=== PATIENT | male | born 1990 | race African-American/Black ===

== ENCOUNTER 2016-11-09 09:07 | Emergency (ER) | payer OTHER ==
[2016-11-09 11:10] VITALS: BP 129/73
--- NOTE | 2016-11-09 11:11 | ER Document Report ---
ED Extremity Problem, Upper - General Chief Complaint: Shoulder Pain Stated Complaint: SHOULDER PAIN Mode of Arrival: Ambulatory Information source: Patient Notes: 26-year-old M presents to the emergency department complaining of left shoulder pain over the last 2 days. Pt reports pain to anterior lateral left shoulder worse with movement of joint. 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 Denies fever, swelling, warmth, bruising, extremity weakness/numbness/tingling, chest pain or shortness of breath. TRAVEL OUTSIDE OF THE [place] IN LAST 30 DAYS: No - HPI Patient complains to provider of: Left, Shoulder Onset: Yesterday Recent injury: No Quality of pain: Achy, Sharp Severity of pain: Intermittent Pain Level: 3 Associated symptoms: None Exacerbated by: Movement Relieved by: Rest, Positioning Similar symptoms previously: No Recently seen / treated by doctor: No - Related Data Allergies/Adverse Reactions: Penicillins Allergy (Verified 11/09/16 09:17) Past Medical History - Social History Smoking Status: Never Smoker Frequency of alcohol use: None Drug Abuse: None Lives with: Family Family History: Reviewed & Not Pertinent Patient has suicidal ideation: No Patient has homicidal ideation: No Infectious Medical History: Reports: Hx HIV Surgical Hx: Negative - Immunizations Hx Diphtheria, Pertussis, Tetanus Vaccination: Yes Review of Systems - Review of Systems Constitutional: No symptoms reported EENT: No symptoms reported Cardiovascular: No symptoms reported Respiratory: No symptoms reported Gastrointestinal: No symptoms reported Genitourinary: No symptoms reported Male Genitourinary: No symptoms reported Musculoskeletal: See HPI Skin: No symptoms reported Hematologic/Lymphatic: No symptoms reported Neurological/Psychological: No symptoms reported -: Yes All other systems reviewed and negative Physical Exam - Vital signs Vitals: Temp Pulse Resp BP Pulse Ox 97.8 F 81 14 135/73 H 100 11/09/16 09:14 11/09/16 09:14 11/09/16 09:14 11/09/16 09:14 11/09/16 09:14 Interpretation: Normal - General General appearance: Appears well, Alert In distress: None - HEENT Head: Normocephalic, Atraumatic Eyes: Normal Pupils: PERRL - Respiratory Respiratory status: No respiratory distress Chest status: Nontender Breath sounds: Normal Chest palpation: Normal - Cardiovascular Rhythm: Regular Heart sounds: Normal auscultation Murmur: No - Abdominal Inspection: Normal Distension: No distension Bowel sounds: Normal Tenderness: Nontender Organomegaly: No organomegaly - Back Back: Normal, Nontender - Extremities General upper extremity: Normal inspection, Nontender, Normal color, Normal ROM , Normal strength, Normal temperature. No: Tender, Edema General lower extremity: Normal inspection, Nontender, Normal color, Normal ROM , Normal strength, Normal temperature, Normal weight bearing. No: Tender, Edema , Penny's sign Shoulder: Tender - Mild tenderness to palpation to anterior and lateral left shoulder/AC joint area. Full active, passive, and against resistance range of motion. Neurovascular function intact. No swelling, erythema, bruising, warmth , or instability.. No: Normal, Nontender, Abrasion, Deformity, Dislocation, Ecchymosis, Instability, Laceration, Limited ROM, Other Arm: Normal, Nontender Elbow: Normal, Nontender Forearm: Normal, Nontender Wrist: Normal, Nontender Hand: Normal, Nontender - Neurological Neuro grossly intact: Yes Cognition: Normal Orientation: AAOx4 Dameron Coma Scale Eye Opening: Spontaneous Mary Coma Scale Verbal: Oriented Dameron Coma Scale Motor: Obeys Commands Dameron Coma Scale Total: 15 Speech: Normal Motor strength normal: LUE, RUE, LLE, RLE Sensory: Normal - Psychological Associated symptoms: Normal affect, Normal mood - Skin Skin Temperature: Warm Skin Moisture: Dry Skin Color: Normal Course - Re-evaluation Re-evalutation: 11/09/16 11:05 Patient hemodynamically stable, in no distress, afebrile. Patient declined x- rays. No suggestion of emergent osseous, inflammatory, vascular, or infectious etiology to symptoms at this time. Patient appears stable for discharge and agrees with home care, follow-up , and ED return precautions. - Vital Signs Vital signs: Temp Pulse Resp BP Pulse Ox 97.8 F 63 16 129/73 H 100 11/09/16 11:05 11/09/16 11:05 11/09/16 11:05 11/09/16 11:05 11/09/16 11:05 Discharge - Discharge Clinical Impression: Left shoulder pain Qualifiers: Chronicity: acute Qualified Code(s): M25.512 - Pain in left shoulder Condition: Stable Disposition: HOME, SELF-CARE Instructions: Shoulder Injury ([facility]), Exercise Program for the Shoulder ([facility]), Anti-Inflammatory Medication ([facility]), Ice Packs ([facility]), Warm Packs ([facility]), Muscle Relaxers ([facility]), Family Physicians / Practices Additional Instructions: Follow-up with your primary care provider this week. Return to the emergency department for any worsening symptoms or concerns. Prescriptions: Methocarbamol [Robaxin 500 mg Tablet] 500 mg PO Q8HP PRN #10 tablet PRN Reason: Naproxen [Naprosyn 375 Mg Tablet] 375 mg PO BIDP PRN #10 tablet PRN Reason: Forms: Elevated Blood Pressure, Return to Work Referrals: [facility] [Provider Group] - Follow up in 3-5 days
== END 2016-11-09 11:17 | disposition home or self-care (01) ==
LOC: ER 09:07
DX: M25.512 Pain in left shoulder (principal); Z88.0 Allergy status to penicillin; Z21 Asymptomatic human immunodeficiency virus [HIV] infection status
CPT/HCPCS: 99283

== ENCOUNTER 2017-01-26 17:25 | Emergency (ER) | payer OTHER ==
[2017-01-26 17:48] VITALS: BP 124/65
--- NOTE | 2017-01-26 18:56 | ER Document Report ---
ED Medical Screen (RME) - General Stated Complaint: BACK PAIN Notes: 26 yo male c/o low back pain x 2 days. lifting heavy box prior to pain. no radiculopathy, no paresthesia. no bowel/bladder change. no fever. TRAVEL OUTSIDE OF THE [place] IN LAST 30 DAYS: No - Related Data Allergies/Adverse Reactions: Penicillins Allergy (Verified 01/26/17 18:53) Past Medical History Infectious Medical History: Reports: Hx HIV - Immunizations Hx Diphtheria, Pertussis, Tetanus Vaccination: Yes Physical Exam - Vital signs Vitals: Temp Pulse Resp BP Pulse Ox 98.9 F 76 16 124/65 99 01/26/17 17:44 01/26/17 17:44 01/26/17 17:44 01/26/17 17:44 01/26/17 17:44 Course - Vital Signs Vital signs: Temp Pulse Resp BP Pulse Ox 98.9 F 76 16 124/65 99 01/26/17 17:44 01/26/17 17:44 01/26/17 17:44 01/26/17 17:44 01/26/17 17:44
--- NOTE | 2017-01-26 21:01 | ER Document Report ---
ED Neck/Back Problem - General Chief Complaint: Low Back Pain Stated Complaint: BACK PAIN Time seen by provider: 20:55 Mode of Arrival: Ambulatory Information source: Patient Notes: 26-year-old male presents to ED for complain of low back pain times today. He states he was bit in the sissy-box prior to the pain. He denies any radiculopathy any paresthesias any loss of control of bowel or bladder or any change in bowel habit. He did has not had a fever. He has had chronic back pain for number of years it only happens when he lifts or turns wrong. TRAVEL OUTSIDE OF THE [place] IN LAST 30 DAYS: No - HPI Patient complains to provider of: Lower back Onset: Other - 2 days Where: Work Onset: Chronic Timing: Waxing and waning Quality of pain: Sharp Severity: Mild Pain Level: 2 Context: Lifting Recent injury: Yes Associated symptoms: Like prior neck/back pain, Lower back pain. denies: Incontinence, Motor loss, Numbness/tingling, Radiation to arm, Radiation to chest, Radiation to leg, Unable to urinate Exacerbated by: Movement of trunk Relieved by: Nothing Similar symptoms previously: Yes Recently seen / treated by doctor: No - Related Data Allergies/Adverse Reactions: Penicillins Allergy (Verified 01/26/17 18:53) Past Medical History - General Information source: Patient - Social History Smoking Status: Current Every Day Smoker Cigarette use (# per day): Yes - one third pack per day Chew tobacco use (# tins/day): No Smoking Education Provided: Yes - less than 2 minutes Frequency of alcohol use: Social Drug Abuse: None Occupation: heating and air Lives with: Spouse/Significant other Family History: CVA, DM, Hyperlipidemia, Hypertension, Malignancy Patient has suicidal ideation: No Patient has homicidal ideation: No - Past Medical History Cardiac Medical History: Reports: None Pulmonary Medical History: Reports: None EENT Medical History: Reports: None Neurological Medical History: Reports: None Endocrine Medical History: Reports: None Renal/ Medical History: Reports: None Malignancy Medical History: Reports None GI Medical History: Reports: None Musculoskeltal Medical History: Reports Hx Musculoskeletal Deformity Skin Medical History: Reports None Psychiatric Medical History: Reports: None Traumatic Medical History: Reports: None Infectious Medical History: Reports: Hx HIV Surgical Hx: Negative Past Surgical History: Reports: None - Immunizations Hx Diphtheria, Pertussis, Tetanus Vaccination: Yes Review of Systems - Review of Systems Constitutional: No symptoms reported EENT: No symptoms reported Cardiovascular: No symptoms reported Respiratory: No symptoms reported Gastrointestinal: No symptoms reported Genitourinary: No symptoms reported Male Genitourinary: No symptoms reported Musculoskeletal: Back pain, Muscle pain Skin: No symptoms reported Hematologic/Lymphatic: No symptoms reported Neurological/Psychological: No symptoms reported Physical Exam - Vital signs Vitals: Temp Pulse Resp BP Pulse Ox 98.9 F 76 16 124/65 99 01/26/17 17:44 01/26/17 17:44 01/26/17 17:44 01/26/17 17:44 01/26/17 17:44 Interpretation: Normal - General General appearance: Appears well, Alert - HEENT Head: Normocephalic, Atraumatic Eyes: Normal Pupils: PERRL - Respiratory Respiratory status: No respiratory distress Chest status: Nontender Breath sounds: Normal Chest palpation: Normal - Cardiovascular Rhythm: Regular Heart sounds: Normal auscultation Murmur: No - Abdominal Inspection: Normal Distension: No distension Bowel sounds: Normal Tenderness: Nontender Organomegaly: No organomegaly - Back Back: Normal, Tender - Low back. No: Deformity/step-off, CVA tenderness, Vertebra tenderness, Scars, Scoliosis, Wounds - Extremities General upper extremity: Normal inspection, Nontender, Normal color, Normal ROM , Normal temperature General lower extremity: Normal inspection, Nontender, Normal color, Normal ROM , Normal temperature, Normal weight bearing. No: Penny's sign - Neurological Neuro grossly intact: Yes Cognition: Normal Orientation: AAOx4 Deaver Coma Scale Eye Opening: Spontaneous Deaver Coma Scale Verbal: Oriented Deaver Coma Scale Motor: Obeys Commands Deaver Coma Scale Total: 15 Speech: Normal Motor strength normal: LUE, RUE, LLE, RLE Sensory: Normal - Psychological Associated symptoms: Normal affect, Normal mood - Skin Skin Temperature: Warm Skin Moisture: Dry Skin Color: Normal Course - Vital Signs Vital signs: Temp Pulse Resp BP Pulse Ox 98.9 F 76 16 124/65 99 01/26/17 17:44 01/26/17 17:44 01/26/17 17:44 01/26/17 17:44 01/26/17 17:44 Discharge - Discharge Clinical Impression: Low back pain Qualifiers: Chronicity: unspecified Back pain laterality: bilateral Sciatica presence: without sciatica Qualified Code(s): M54.5 - Low back pain Condition: Stable Disposition: HOME, SELF-CARE Instructions: Family Physicians / Practices Additional Instructions: LOW BACK PAIN: Three out of every four people will have an episode of disabling back pain during their lifetime. Most commonly the pain is due to straining of the muscles and ligaments in the low back. Usual treatment includes: (1) Rest on a firm surface. Avoid lying on your stomach. (2) Ice pack the painful area. After a few days, gentle heat may be used intermittently to relax the area, or ice packs can be continued. (3) Medication may be needed -- muscle relaxers and antiinflammatory medicines are commonly used. (4) As the back improves, exercises are prescribed to strengthen the back and abdominal muscles. Your doctor will advise you on the proper care for your back at each stage in your recovery. You may be better in a few days -- or healing may take several weeks. If new symptoms of a "herniated disc" (radiation of pain, numbness, or tingling down the back of the leg or weakness in the leg) occur, you should be re-examined. Further testing may be necessary. Anti-Inflammatory Medication You have received a prescription for an antiinflammatory agent. This is an excellent, safe drug for pain control. In addition, it has potent antiinflammatory effects which are beneficial, especially in the treatment of injuries, arthritis, or tendonitis. It's best to take this medicine with food. Persons with ulcer disease or allergy to aspirin should notify their physician of this before taking this drug. Take the medication exactly as prescribed. Don't take additional doses unless instructed to do so by your doctor. If you develop wheezing, shortness of breath, hives, faintness, stomach pain, vomiting, or dark black stools, return for re-evaluation at once. MUSCLE RELAXERS: Muscle relaxing medications are usually prescribed for acute muscle spasm or injury to the neck and back. They are often combined with antiinflammatory pain medication for increased relief. You may stop the muscle relaxer when the pain and stiffness have improved. Start the medication again if spasms recur. Muscle relaxers may cause drowsiness, especially with the first dose. Do not operate machinery or drive while under the effects of the medication. Most muscle relaxers last up to 24 hours. Do not combine the medication with alcohol. ICE PACKS: Apply ice packs frequently against the painful area. Many different schedules are recommended, such as "20 minutes on, 20 minutes off" or "one hour ice, two hours rest." If you need to work, you may need to go longer between ice treatments. You should plan to have the area ice packed AT LEAST one fourth of the time. The ice should be applied over the wrap, tape, or splint, or over a layer of cloth -- not directly against the skin. Some ice bags have a built-in cloth and can be put directly on the skin. WARM PACKS: After approximately two days, apply gentle heat (such as a heating pad or hot water bottle) for about 20 to 30 minutes about every two hours -- at least four times daily. Warmth and elevation will help you make a more rapid recovery , and will ease the pain considerably. Do not use HOT heat, and never apply heat for longer than 30 minutes. The continuous heat can invisibly damage skin and muscles -- even when no burn is seen on the surface. Damaged muscles can make you MORE sore. FOLLOW-UP CARE: If you have been referred to a physician for follow-up care, call the physician s office for an appointment as you were instructed or within the next two days. If you experience worsening or a significant change in your symptoms, notify the physician immediately or return to the Emergency Department at any time for re-evaluation. Prescriptions: Cyclobenzaprine HCl [Flexeril 10 mg Tablet] 10 mg PO TIDP PRN #15 tab PRN Reason: Naproxen 500 mg PO BIDP PRN #14 tablet PRN Reason: Forms: Smoking Cessation Education, Return to Work
== END 2017-01-26 21:25 | disposition home or self-care (01) ==
LOC: ER 17:25
DX: M54.5 Low back pain (principal); M54.9 Dorsalgia, unspecified; G89.29 Other chronic pain; F17.210 Nicotine dependence, cigarettes, uncomplicated
CPT/HCPCS: 99283

== ENCOUNTER 2017-06-21 20:32 | Emergency (ER) | payer OTHER ==
[2017-06-21] MEDS ORDERED: ACETAMINOPHEN 325 MG TABLET PO ONE (20:59)
--- NOTE | 2017-06-22 00:01 | ER Document Report ---
HPI - HPI Patient complains to provider of: lower back pain Pain Level: 3 Context: Patient is a 27-year-old male comes emergency department for chief complaint of lower back pain on both sides. This started about 2 days ago. 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 He states that he really came because he needs a couple of days off from work. He denies any impact injury to his back, surgeries on his back. He does have HIV but he denies any fever, he is compliant with his antivirals, he denies any bowel or bladder dysfunction, he denies any focal numbness or weakness. - CARDIOVASCULAR Cardiovascular: DENIES: Chest pain - REPRODUCTIVE Reproductive: DENIES: : - DERM Skin Color: Normal, [place] Past Medical History - General Information source: Patient - Social History Smoking Status: Never Smoker Drug Abuse: None Lives with: Spouse/Significant other Family History: CVA, DM, Hyperlipidemia, Hypertension, Malignancy Renal/ Medical History: Denies: Hx Peritoneal Dialysis Musculoskeltal Medical History: Reports Hx Musculoskeletal Deformity Infectious Medical History: Reports: Hx HIV Surgical Hx: Negative - Immunizations Hx Diphtheria, Pertussis, Tetanus Vaccination: Yes Vertical Provider Document - CONSTITUTIONAL General Appearance: WD/WN, No Apparent Distress - INFECTION CONTROL TRAVEL OUTSIDE OF THE [place] IN LAST 30 DAYS: No - HEENT HEENT: Atraumatic, Normocephalic - NECK Neck: Normal Inspection - RESPIRATORY Respiratory: Breath Sounds Normal, No Respiratory Distress O2 Sat by Pulse Oximetry: 95 - CARDIOVASCULAR Cardiovascular: Regular Rate, Regular Rhythm - GI/ABDOMEN Gastrointestinal: Abdomen Soft, Abdomen Non-Tender - BACK Back: negative: Normal Inspection - Mild paralumbar muscular tenderness, negative straight leg raise, negative axial load testing, no midline tenderness , no saddle anesthesia, full range of motion of all extremities, normal distal neurovascular exam - MUSCULOSKELETAL/EXTREMETIES Musculoskeletal/Extremeties: MAEW, FROM, Non-Tender - NEURO Level of Consciousness: Awake, Alert, Appropriate - DERM Integumentary: Warm, Dry, No Rash Course - Re-evaluation Re-evalutation: Patient with bilateral paralumbar musculature tenderness, no concerning deficits. Patient does have HIV, however he is compliant with his antivirals, he denies any fever, he has no focal neurological deficits, bowel or bladder changes, and he is actually very alert and well-appearing on exam. I did discuss follow-up, I did discuss return precautions in detail with patient because of his condition. He states that he has done well with Robaxin in the past, states that he just needs a couple days off to rest. Patient states understanding with recommendations and return precautions. - Vital Signs Vital signs: Temp Pulse Resp BP Pulse Ox 99.1 F 78 20 128/82 H 95 06/21/17 20:35 06/21/17 20:35 06/21/17 20:35 06/21/17 20:35 06/21/17 20:35 Discharge - Discharge Clinical Impression: Muscle strain Lower back pain Qualifiers: Chronicity: acute Back pain laterality: bilateral Sciatica presence: without sciatica Qualified Code(s): M54.5 - Low back pain Condition: Stable Disposition: HOME, SELF-CARE Additional Instructions: Your examination does not indicate any concerning abnormalities, symptoms and examination consistent with muscular strain. Apply heat to the area, take the Robaxin as prescribed, follow-up with primary care for additional management. Return to emergency department for any concerning symptoms including loss of bowel or bladder control, fever, worsening pain, or any other concerning symptoms. Prescriptions: Methocarbamol [Robaxin 500 mg Tablet] 500 mg PO QID PRN #20 tablet PRN Reason: Forms: Return to Work
[2017-06-22 00:15] VITALS: BP 112/60
== END 2017-06-22 00:13 | disposition home or self-care (01) ==
LOC: ER 20:32
DX: T14.8 Other injury of unspecified body region (principal); X58.XXXA Exposure to other specified factors, initial encounter; M54.5 Low back pain; Z21 Asymptomatic human immunodeficiency virus [HIV] infection status; Z79.899 Other long term (current) drug therapy
CPT/HCPCS: 99283

== ENCOUNTER 2017-07-28 12:21 | Emergency (ER) | payer OTHER ==
[2017-07-28 12:28] VITALS: BP 106/68
--- NOTE | 2017-07-28 13:10 | ER Document Report ---
ED Neck/Back Problem - General Chief Complaint: Back Pain Stated Complaint: LUMBAR PAIN Time Seen by Provider: 07/28/17 12:29 Mode of Arrival: Ambulatory Information source: Patient Notes: Patient is a 27-year-old male who presents to the ER today for low back pain all across the lower back after lifting something heavy 2 days ago and "straining my back." Patient states that he is strained his back before when he does not lift with his legs and states that this feels the same way. He denies feeling a pop or any radiation down either of his legs. He denies any numbness or tingling, loss of bladder or bowel function.He states that he is mainly here for a work note as he called at work today. He is a manager of construction. TRAVEL OUTSIDE OF THE [place] IN LAST 30 DAYS: No - Related Data Allergies/Adverse Reactions: Penicillins Allergy (Verified 07/28/17 12:25) Past Medical History - General Information source: Patient - Social History Smoking Status: Unknown if Ever Smoked Family History: CVA, DM, Hyperlipidemia, Hypertension, Malignancy Renal/ Medical History: Denies: Hx Peritoneal Dialysis Musculoskeltal Medical History: Reports Hx Musculoskeletal Deformity Infectious Medical History: Reports: Hx HIV - Immunizations Hx Diphtheria, Pertussis, Tetanus Vaccination: Yes Review of Systems - Review of Systems Constitutional: No symptoms reported EENT: No symptoms reported Cardiovascular: No symptoms reported Respiratory: No symptoms reported Gastrointestinal: No symptoms reported Genitourinary: No symptoms reported Male Genitourinary: No symptoms reported Musculoskeletal: See HPI Skin: No symptoms reported Hematologic/Lymphatic: No symptoms reported Neurological/Psychological: No symptoms reported Physical Exam - Vital signs Vitals: Temp Pulse Resp BP Pulse Ox 98.5 F 68 16 106/68 98 07/28/17 12:27 07/28/17 12:27 07/28/17 12:27 07/28/17 12:27 07/28/17 12:27 - Notes Notes: PHYSICAL EXAMINATION: GENERAL: Well-appearing and in no acute distress. HEAD: Atraumatic, normocephalic. EYES: Pupils equal round and reactive to light, extraocular movements intact, sclera anicteric, conjunctiva are normal. NECK: Normal range of motion, supple without lymphadenopathy LUNGS: CTAB and equal. No wheezes rales or rhonchi. HEART: Regular rate and rhythm without murmurs ABDOMEN: Soft, no tenderness. No guarding, no rebound BACK: Bilateral lumbar paravertebral tenderness, no vertebral tenderness, normal ROM GI/: no CVA tenderness EXTREMITIES: Normal range of motion, no pitting edema. No cyanosis. NEUROLOGICAL: Cranial nerves grossly intact. Normal sensory/motor exams. PSYCH: Normal mood, normal affect. SKIN: Warm, Dry, normal turgor, no rashes or lesions noted Course - Re-evaluation Re-evalutation: 07/28/17 13:10 Patient declined x-rays today. States that he just needs a note for work. - Vital Signs Vital signs: Temp Pulse Resp BP Pulse Ox 98.5 F 68 16 106/68 98 07/28/17 12:27 07/28/17 12:27 07/28/17 12:27 07/28/17 12:27 07/28/17 12:27 Discharge - Discharge Clinical Impression: Low back pain Qualifiers: Chronicity: acute Back pain laterality: bilateral Sciatica presence: without sciatica Qualified Code(s): M54.5 - Low back pain Condition: Stable Disposition: HOME, SELF-CARE Instructions: Muscle Strain ([facility]), Low Back Pain ([facility]), Warm Packs ([facility]) Additional Instructions: Return immediately for any new or worsening symptoms. Follow up with primary care provider, call tomorrow to make followup appointment. Prescriptions: Cyclobenzaprine HCl [Flexeril 10 mg Tablet] 10 mg PO TIDP PRN #15 tab PRN Reason: Forms: Return to Work
[2017-07-28] MEDS ORDERED: CYCLOBENZAPRINE HCL 10 MG TABLET PO ONE (13:11)
== END 2017-07-28 13:19 | disposition home or self-care (01) ==
LOC: ER 12:21
DX: M54.5 Low back pain (principal); Z21 Asymptomatic human immunodeficiency virus [HIV] infection status; Z88.0 Allergy status to penicillin
CPT/HCPCS: 99281

== ENCOUNTER 2020-04-28 06:25 | Emergency (ER) | payer BC, OTHER ==
--- NOTE | 2020-04-28 07:52 | RADIOLOGY REPORT (SQ) ---
CLINICAL HISTORY: left ankle injury and pain COMPARISON: None. TECHNIQUE: XR ANKLE 3 OR MORE VIEWS 04/28/2020 12:00 AM CDT FINDINGS: There is no fracture. Joint spaces are preserved. Soft tissues are unremarkable. IMPRESSION: No acute osseous findings.
--- NOTE | 2020-04-28 09:21 | ER Document Report ---
HPI - HPI Time Seen by Provider: 04/28/20 09:12 Pain Level: 2 Context: Patient is a 29-year-old male who presents emergency department with a chief complaint of left ankle pain. Patient reports 1 week ago he was helping his brother move when he went to step down coming off of a step and externally rotated his ankle. 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 Patient reports continued swelling to the lateral side of his ankle. Has not taken any medications. Has not been elevating. Patient states he has been able to bear weight and ambulate. Patient reports he was concerned due to continued swelling. - REPRODUCTIVE Reproductive: DENIES: : - MUSCULOSKELETAL Musculoskeletal: REPORTS: Extremity pain - l ankle - DERM Skin Color: Normal Past Medical History - General Information source: Patient - Social History Smoking Status: Never Smoker Lives with: Spouse/Significant other Family History: CVA, DM, Hyperlipidemia, Hypertension, Malignancy Patient has homicidal ideation: No - Past Medical History Cardiac Medical History: Reports: None Pulmonary Medical History: Reports: None EENT Medical History: Reports: None Neurological Medical History: Reports: None Endocrine Medical History: Reports: None Renal/ Medical History: Reports: None. Denies: Hx Peritoneal Dialysis Malignancy Medical History: Reports None GI Medical History: Reports: None Musculoskeletal Medical History: Reports Hx Musculoskeletal Deformity Skin Medical History: Reports None Psychiatric Medical History: Reports: None Traumatic Medical History: Reports: None Infectious Medical History: Reports: Hx HIV Surgical Hx: Negative - Immunizations Hx Diphtheria, Pertussis, Tetanus Vaccination: Yes Vertical Provider Document - CONSTITUTIONAL Agree With Documented VS: Yes Exam Limitations: No Limitations General Appearance: No Apparent Distress Notes: GENERAL: Well-appearing, well-nourished and in no acute distress. HEAD: Atraumatic, normocephalic. EYES: Pupils equal round and reactive to light, extraocular movements intact, sclera anicteric, conjunctiva are normal. ENT: Nares patent, oropharynx clear without exudates. Moist mucous membranes. NECK: Normal range of motion, supple without lymphadenopathy or JVD. LUNGS: Breath sounds clear to auscultation bilaterally and equal. No wheezes rales or rhonchi. HEART: Regular rate and rhythm without murmurs, rubs or gallops. ABDOMEN: Soft, nontender, normoactive bowel sounds. No guarding, no rebound. No masses appreciated. BACK: No cervical, thoracic, lumbar midline tenderness. No saddle anesthesia, normal distal neurovascular exam. GENITOURINARY: Deferred. EXTREMITIES: Tenderness to left lateral malleolus with surrounding edema, no erythema, no ecchymosis. Patient is able to plantar and dorsiflex with minimal discomfort. No tenderness to the medial malleolus. Patient has a less than 2- second cap refill in all digits of the left foot. Patient has a +2 strong palpable dorsalis pedis and posterior tibial pulse. NEUROLOGICAL: Cranial nerves II through XII grossly intact. Normal speech, normal gait. PSYCH: Normal mood, normal affect. SKIN: Warm, Dry, normal turgor, no rashes or lesions noted. - INFECTION CONTROL TRAVEL OUTSIDE OF THE [place] IN LAST 30 DAYS: No Course - Vital Signs Vital signs: Temp Pulse Resp BP Pulse Ox 98.0 F 61 18 128/68 H 99 04/28/20 06:43 04/28/20 06:43 04/28/20 06:43 04/28/20 06:43 04/28/20 06:43 Discharge - Discharge Clinical Impression: Left ankle sprain Qualifiers: Encounter type: initial encounter Involved ligament of ankle: unspecified ligament Qualified Code(s): S93.402A - Sprain of unspecified ligament of left ankle, initial encounter Condition: Stable Disposition: HOME, SELF-CARE Additional Instructions: *Today are seen emergency department for left ankle pain. Your x-ray was negative for any acute bony abnormality such as a fracture or dislocation. Your symptoms are consistent with a sprain. This results in the stretching or tearing of ligaments. Please rest, ice and elevate. Please use your crutches. SPRAIN: Your injury is a sprain. A sprain results from stretching or tearing of the ligaments, usually from a twisting injury. The ligaments will require time and protection in order to heal properly. Many sprains are quite disabling and should be taken seriously. The usual initial treatment of sprains is cold packs, elevation, and rest of the injured area. Your physician has assessed the seriousness of your ligament injury, and has outlined a treatment plan. Understand that this treatment may change, depending on how you progress. If a re-examination was recommended, it is important that you follow up as instructed. Call the doctor any time if there is severe pain, numbness, or loss of function in the injured area. WALLY WRAP: A compression dressing (wally wrap) has been placed. This helps hold the area still. It limits swelling and internal bleeding. The wrap should be comfortably snug -- not tight. You should feel a sense of pressure, but not severe pain under the wrap. Unless the physician tells you otherwise, you can adjust the wrap for comfort. If the wrap causes symptoms suggesting it's too tight -- uncomfortable pressure, swelling or discoloration beyond the wrap, numbness, or severe pain -- you must loosen the wrap. If these symptoms don't resolve promptly, return for re-evaluation. USE OF CRUTCHES: The doctor has recommended that you not bear weight at this time. You will need to use crutches. Adjust the crutches so the tops come to about two inches under the armpit while you are standing upright. Use your hands -- not your arm pits -- to support your weight. To get into a chair, support yourself with one crutch on the injured side. Hold the chair with the other hand, then lower yourself while putting all your weight on the good leg. Going up stairs is `good leg up, step up, then bring up crutches and bad leg.' Down stairs is `bad leg and crutches down, then bring good leg down.' If you develop numbness or swelling in an arm or hand, you are using the crutches incorrectly. Return if you are having any problems with the crutches. ICE & ELEVATION: Apply ice packs frequently against the painful area. Many different schedules are recommended, such as "20 minutes on, 20 minutes off" or "one hour ice, two hours rest." If you need to work, you may need to go longer between ice treatments. You should plan to have the area ice packed AT LEAST one-fourth of the time. The ice should be applied over the wrap, tape, or splint, or over a layer of cloth -- not directly against the skin. Some ice bags have a built-in cloth and can be put directly on the skin. Your injured part should be elevated as much as possible over the next 48 hours. Try to keep the injury above the level of the heart. Avoid use of the injured area. Elevation and rest will decrease the swelling. USE OF [id number] IBUPROFEN: Ibuprofen (Advil, Nuprin, Medipren, Motrin IB) is a medication for fever and pain control. In addition, it has anti- inflammatory effects which may be beneficial, especially in the treatment of injuries. It's best to take ibuprofen with food. Persons with ulcer disease or allergy to aspirin should notify their physician of this before taking ibuprofen. Ibuprofen can be given every four to six hours, for a total of four doses daily. Age Pain or fever dose Antiinflammatory dose 6-8 yr 200 mg (1 tab) 200 mg (1 tab) 9-11 yr 200 mg (1 tab) 200-400 mg (1-2 tab) 11-14 yr 200-400 mg (1-2 tab) 400 mg (2 tab) 15-adult 400 mg (2 tab) 600 mg (3 tab) FOLLOW-UP CARE: If you have been referred to a physician for follow-up care, call the physicians office for an appointment as you were instructed or within the next two days. If you experience worsening or a significant change in your symptoms, notify the physician immediately or return to the Emergency Department at any time for re-evaluation. Forms: Return to Work
[2020-04-28 09:29] VITALS: BP 127/79
== END 2020-04-28 09:40 | disposition home or self-care (01) ==
LOC: ER 06:25
DX: S93.402A Sprain of unspecified ligament of left ankle, initial encounter (principal); X50.0XXA Overexertion from strenuous movement or load, initial encounter; Y93.E6 Activity, residential relocation
CPT/HCPCS: 99283